=== PATIENT | female | born 1965 | race Caucasian/White ===

== ENCOUNTER → 2023-11-21 06:37 | Outpatient (REF) | payer BC, SELFPAY ==
[2023-11-21 08:25] LABS: 24 Hour Urine Total Volume 1300 ml
[2023-11-21 10:28] LABS: 24 Hour Urine Creatinine 1.059 gm/day (0.8-1.8)
[2023-11-21 10:29] LABS: 24 Hour Urine Calcium 61.1 mg/day; Urine Calcium 4.7 mg/dl
== END ==
LOC: REG 06:37
PROVIDERS: ATTENDING PHYSICIAN Physician Assistant; FAMILY PHYSICIAN Internal Medicine
DX: E34.9 Endocrine disorder, unspecified (principal)
CPT/HCPCS: 81050; 82340; 82570

== ENCOUNTER → 2024-02-24 06:37 | Outpatient (REF) | payer BC, SELFPAY ==
[2024-02-24 09:48] LABS: HDL Cholesterol 54 mg/dl; LDL Cholesterol, Calculated 145 mg/dl; Total Cholesterol 223 mg/dl (50-199); Triglyceride 124 mg/dl (10-149); Very Low Density Lipoprotein 24 mg/dl (0-30)
[2024-02-24 10:54] LABS: Glycohemoglobin (HgbA1c) 4.8 % (4.0-5.6)
== END ==
LOC: HWLAB 06:37
PROVIDERS: ATTENDING PHYSICIAN Internal Medicine
DX: R73.01 Impaired fasting glucose (principal); R79.89 Other specified abnormal findings of blood chemistry; M05.20 Rheumatoid vasculitis with rheumatoid arthritis of unspecified site; M79.7 Fibromyalgia; K76.0 Fatty (change of) liver, not elsewhere classified; Z00.00 Encounter for general adult medical examination without abnormal findings
CPT/HCPCS: 36415; 80061; 83036